=== PATIENT | male | born 1950 | race Caucasian/White ===

== ENCOUNTER 2023-07-09 07:34 | Outpatient (CLI) | payer OTHER, SELFPAY ==
[2023-07-09 07:57] VITALS: BP 155/60; PULSE 71; RESP 20; TEMP 36.7; O2SAT 97
[2023-07-09] MEDS: Midazolam 2 MG/2 ML VIAL IVP (08:30)
[2023-07-09] MEDS: fentaNYL 100 MCG/2 ML VIAL IVP (08:30)
[2023-07-09] MEDS: Lactated Ringers 500 ML 80 ML IV (08:34)
[2023-07-09 09:04] VITALS: BP 138/91; PULSE 70; RESP 16; O2SAT 94
--- NOTE | 2023-07-09 09:10 | DI.RAD_ITS ---
Exam(s) XR PAIN CLINIC LUMBAR SP 2V EXAM: XR PAIN CLINIC LUMBAR SP 2V CLINICAL HISTORY: DX: Lumbar spondylosis TECHNIQUE: 2D and realtime digital imaging was performed. CONTRAST MATERIAL: Refer to procedure report. COMPARISON: No exams were available for comparison FINDINGS: Fluoroscopy was provided for Dr. Omer during the performance of a bilateral lumbar radiofrequency ab lation. Please refer to the procedure report for complete details. Ka,r=18.7 mGy IMPRESSION: RADIATION DOSE DELIVERED: 0.0 0.0 0
--- NOTE | 2023-07-09 09:11 | PDOC.PAIN ---
Date of service: 07/09/23 Time of Service: 09:12 Pain Managment Procedure Note Procedure Note Procedure Note: PROCEDURE NOTE BILATERAL LUMBAR RADIOFREQUENCY ABLATION Date of Service: July 09, 2023 Patient:Darwin Haddad? Provider:? Steve Mendoza DO, MPH Darwin W[place]ster [facility] Bilateral Lumbar Radiofrequency Ablation with the Zenph Machine.? Pre Operative Diagnosis: Lumbosacral Spondylosis without Myelopathy Post Operative Diagnosis: Same Pre procedure pain; VAS= 8/10 Comments: He had this procedure about 2 years ago at the [facility] and had >18 months of >50% pain relief. PROCEDURE: Radiofrequency Ablation of medial branches - bilateral L3, L4, L5 and lateral branches of bilateral S1. Darwin?was interviewed and the medical record was reviewed.? There were no medical, pharmacologic, radiographic or other structural contraindications to attempting fluoroscopically guided BILATERAL Lumbar Radiofrequency Ablation.?Risks and expected side effects as well as potential benefit of the procedure were reviewed with Donna, and the patient's voiced concerns were addressed.? The printed consent form was signed.? Standard time-out procedure was performed. Darwin was brought into the fluoroscopy suite and positioned into the prone position on the fluoroscopy table and allowed to adjust to a position of comfort. A grounding pad was placed on the left abdomen. The sterile field was prepared using chlorhexidine preparation of the skin and sterile draping. Local anesthesia superficial and deep was provided by local infiltration of 2% lidocaine. A 17g 100 mm radiofrequency introducer needle was placed to the planned anatomic targets guided with intermittent fluoroscopy with a perpendicular approach to terminally place at the junction of the superior articular process and the transverse process of the bilateral L4, L5, the base of the sacral ala on the bilateral for the L5 medial branch nerve and the area between base of the sacral ala to the S1 foramen bilaterally. The stylets were removed and radiofrequency probes with a 4mm active tip were then inserted. Needle tip position of the probes was verified in the AP, oblique, and lateral views. At each site, the medial branch nerve was stimulated at 2 Hz to a maximum 1-2 volts determined to finalize safe needle and electrode placement. The patient was awake and responsive during this portion of the procedure. Each target was anesthetized with 1-2 mL of 2 % Lidocaine for anesthesia for lesioning and then each target was lesioned at 80 degrees Celsius for 2 minutes and 30 seconds. Tissue impedances were noted to be between 250 and 500 Ohms. At this point I injected 1/4 cc of Depomedrol (40 mg/cc) followed by 1 cc of 0.5% Bupivacaine. There was no unusual discomfort expressed by Donna. The needles were withdrawn without difficulty and bandages placed over the needle placement sites, the patient was observed and was without hemodynamic, neurologic, or allergic reactions. Fluoroscopic images were digitally archived. POST PROCEDURE EVALUATION: IMPRESSION: 1. Summary of procedure. Medication given is documented in the MAR. 2. Follow up plan: Darwin to contact [facility] needed.?This procedure may be repeated if the patient achieves at least 50% improvement in pain/function for at least 6 months. 3. Estimated Blood Loss: <5 mls 4. Fluoroscopy time: Documented in the EMR. Follow up plans and appointments were discussed with the [place]. Post procedure instruction was given as documented in nursing documentation and having met discharge criteria, Donna was [facility] from the [facility]. COMMENTS: No apparent complications. Post-procedure pain: VAS= 6/10. I personally completed the entire procedure. STEVE MENDOZA DO, MPH ABPM&R - Subspecialty board certification in Pain Medicine [facility]
[2023-07-09] MEDS: methylPREDNISolone ACETATE 40 MG/ML VIAL IJ (09:41)
[2023-07-09] MEDS: Bupivacaine 0.5% Pres-Free 10 ML VIAL IJ (09:41)
[2023-07-09] MEDS: Nerve Block Tray 1 EACH MC (09:42)
[2023-07-09] MEDS: Lidocaine 2% Multi-Dose 20 ML VIAL IJ (09:42)
== END 2023-07-09 07:35 | disposition home or self-care (01) ==
LOC: PC 07:35
PROVIDERS: PCP Internal Medicine; Visit Provider Preventive Medicine Occupational Medicine
DX: M47.817 Spondylosis without myelopathy or radiculopathy, lumbosacral region (principal)
CPT/HCPCS: 64635; 64636; 72100; J0665; J1010; J2003; J2250; J3010

== ENCOUNTER 2024-10-12 07:06 | Outpatient (CLI) | payer OTHER, SELFPAY ==
[2024-10-12] VITALS (9 sets, daily range): BP systolic 136–149; BP diastolic 50–99; PULSE 70–77; RESP 8–21; TEMP 37; O2SAT 91–95
--- NOTE | 2024-10-12 06:00 | DI.RAD_ITS ---
Exam(s) XR PAIN CLINIC LUMBAR SP 2V EXAM: XR PAIN CLINIC LUMBAR SP 2V CLINICAL HISTORY: R L3-L5 Lumbar RFA TECHNIQUE: 2D and realtime digital imaging was performed. CONTRAST MATERIAL: Refer to procedure report. COMPARISON: No exams were available for comparison FINDINGS: Fluoroscopy was provided for Dr. Omer during the performance of a lumbar radiofrequency ablation. Please refer to the procedure report for complete details. Ka,r=14.2 mGy IMPRESSION: RADIATION DOSE DELIVERED: 0.0 0.0 0
[2024-10-12] MEDS: fentaNYL 100 MCG/2 ML VIAL IJ (08:30)
[2024-10-12] MEDS: Lactated Ringers 500 ML 30 ML IV (08:40)
[2024-10-12] MEDS: Bupivacaine 0.5% Pres-Free 10 ML VIAL IJ (08:54)
[2024-10-12] MEDS: Lidocaine 2% Pres-Free 5 ML VIAL IJ (08:54)
[2024-10-12] MEDS: methylPREDNISolone ACETATE 40 MG/ML VIAL IJ (08:55)
[2024-10-12] MEDS: Nerve Block Tray 1 EACH MC (08:55)
--- NOTE | 2024-10-17 12:15 | PDOC.PAIN_ITS ---
Date of service: 10/12/24 Time of Service: 09:00 Pain Managment Procedure Note Procedure Note Procedure Note: PROCEDURE NOTE RIGHT LUMBAR RADIOFREQUENCY ABLATION Date of Service: October 12, 2024 Patient:Darwin Haddad? Provider:? Steve Mendoza DO, MPH Darwin W[place]ster has [facility] Right Lumbar Radiofrequency Ablation with the GI Tracks Machine.? Pre Operative Diagnosis: Lumbosacral Spondylosis without Myelopathy ICD-10 M47.816 Post Operative Diagnosis: Same Pre procedure pain; VAS= 7/10 Comments: He had >9 months of >50% pain relief with his June 2023 RFA at right L3-L5. We did turn off his deep brain stimulator for this procedure. PROCEDURE: Radiofrequency Ablation of medial branches - right L3, L4, L5 and lateral branches of the right S1. Darwni?was interviewed and the medical record was reviewed.? There were no medical, pharmacologic, radiographic or other structural contraindications to attempting fluoroscopically guided RIGHT Lumbar Radiofrequency Ablation.?Risks and expected side effects as well as potential benefit of the procedure were rev iewed with Darwin, and the patient's voiced concerns were addressed.? The printed consent form was signed.? Standard time-out procedure was performed. [place] was brought into the fluoroscopy suite and positioned into the prone position on the fluoroscopy table and allowed to adjust to a position of comfort. A grounding pad was placed on the left abdomen. The sterile field was prepared using chlorhexidine preparation of the skin and sterile draping. Local anesthesia superficial and deep was provided by local infiltration of 2% lidocaine. A 17g 100 mm radiofrequency introducer needle was placed to the planned anatomic targets guided with intermittent fluoroscopy with a perpendicular approach to terminally place at the junction of the superior articular process and the transverse process of the right L4, L5, the base of the sacral ala on the right for the L5 medial branch nerve and the area between base of the sacral ala to the S1 foramen on the right. The stylets were removed and radiofrequency probes with a 4mm active tip were then inserted. Needle tip position of the probes was verified in the AP, oblique, and lateral views. At each site, the medial branch nerve was stimulated at 2 Hz to a maximum 1-2 volts determined to finalize safe needle and electrode placement. The patient was awake and responsive during this portion of the procedure. Each target was anesthetized with 1-2 mL of 2 % Lidocaine for anesthesia for lesioning and then each target was lesioned at 80 degrees Celsius for 2 minutes and 30 seconds. Tissue impedances were noted to be between 250 and 500 Ohms. I placed 1/4 cc of Depomedrol (40 mg/cc) followed by 1 cc of 0.5% Bupivacaine at each segmental sensory nerve. There was no unusual discomfort expressed by [place]. The needles were withdrawn without di fficulty and bandages placed over the needle placement sites, the patient was observed and was without hemodynamic, neurologic, or allergic reactions. Fluoroscopic images were digitally archived. POST PROCEDURE EVALUATION: IMPRESSION: 1. Summary of procedure. Medication given is documented in the MAR. 2. Follow up plan: Darwin to contact [facility] needed.?This procedure may be repeated if the patient achieves at least 50% improvement in pain/function for at least 6 months. 3. Estimated Blood Loss: <5 mls 4. Fluoroscopy time: Documented in the EMR. Follow up plans and appointments were discussed with the [place]. Post procedure instruction was given as documented in nursing documentation and having met discharge criteria, Darwin was [facility] from the [facility]. This advanced procedure uses cooled radiofrequency energy to safely target the sensory nerves responsible for sending pain signals.1 A radiofrequency generator transmits a small current of Radiofrequency energy through an insulated electrode, or probe, placed within tissue. Ionic heating, produced by the friction of charged molecules, thermally deactivates the nerves responsible for sending pain signals to the brain. Radiofrequency energy heats and cools the tissue at the site of pain. Unlike other Radiofrequency procedures, Coolief circulates water through the device while heating nervous tissue to create a larger treatment area, increasing the opportunity to help with pain. This combination targets the pain- transmitting nerves without excessive heating, leading to pain relief. COMMENTS: No apparent complications. Post-procedure pain: VAS= 1/10. I personally completed the entire procedure. STEVE MENDOZA DO, MPH ABPM&R - Subspecialty board certification in Pain Medicine [facility] Coding Conscious Sedation used for procedure: Yes CPT Codes: Single Facet Joint, Lumbar/Sacral cool - 07720B ([id number]~G) Right Single Facet Joint, Lumbar/Sacral cool each add'l - 74918Q ([id number]~G) Additional Codes: Date of Service (40152) Date of service: 10/12/24 Diagnoses: Lumbosacral spondylosis without myelopathy
== END 2024-10-12 07:07 | disposition home or self-care (01) ==
LOC: PC 07:07
PROVIDERS: PCP Internal Medicine; Visit Provider Preventive Medicine Occupational Medicine
DX: M47.816 Spondylosis without myelopathy or radiculopathy, lumbar region (principal)
CPT/HCPCS: 64635; 64636; 72100; J0665; J1010; J3010